=== PATIENT | male | born 1960 | race Hispanic/Latino ===

== ENCOUNTER 2022-07-12 17:55 | Observation (INO) | payer OTHER, SELFPAY ==
[2022-07-12 17:56] VITALS: BMI 29.9
--- NOTE | 2022-07-12 17:59 | EKG_ITS ---
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
[2022-07-12 18:00] VITALS: BP 186/97; PULSE 99; RESP 19; TEMP 36.9; O2SAT 99
--- NOTE | 2022-07-12 18:04 | XR_ITS ---
Exam: Chest PA, lateral 2 views Technique: Chest upright PA lateral 2 views Date and time of exam: July 12, 2022 1824 hrs. Comparison May 14, 2019 Indications: Central chest pain today Findings: Normal heart size. No mediastinal adenopathy. No acute fracture No pulmonary edema or pneumonia. Impression: No active disease.
--- NOTE | 2022-07-12 18:05 | PD.EDCHEST ---
ED Chest Pain RME/HPI General Chief Complaint: Chest Pain Stated Complaint: SENT BY PCP FOR ABNORMAL EKG Time Seen by Provider: 07/12/22 18:03 Arrival date/time: 07/12/22 17:55 62-year-old male with a medical history significant for diabetes mellitus, dyslipidemia, hypothyroidism, hypertension, BPH, GERD presents to the emergency department with complaint of chest pain. The patient states he developed a sharp pain to the left side of his chest while seated this morning. He went to his primary physician who performed an EKG and the patient was instructed to come to the emergency department for further evaluation. Pain is described as sharp in nature with the current intensity of 4 out of 10 not related to activity. There has been no fever, palpitations, dizziness, syncope, cough, shortness of breath or extremity swelling. Related Data Home Medications Medication Instructions Recorded Confirmed amlodipine 10 mg tablet 10 mg PO QDAY 04/24/18 07/13/22 atorvastatin 10 mg tablet (Lipitor) 10 mg PO QDAY 04/24/18 07/13/22 finasteride 5 mg tablet 5 mg PO QDAY 04/24/18 07/13/22 metformin 1,000 mg tablet 1,000 mg PO BID 04/24/18 07/13/22 omeprazole 40 mg capsule,delayed 40 mg PO QDAY 04/24/18 07/13/22 release clonidine HCl 0.3 mg tablet 0.3 mg PO TID 07/13/22 07/13/22 olmesartan 40 mg tablet 40 mg PO QDAY 07/13/22 07/13/22 pioglitazone 15 mg tablet 15 mg PO QDAY 07/13/22 07/13/22 sertraline 50 mg tablet 75 mg PO QDAY 07/13/22 07/13/22 levothyroxine 25 mcg tablet 25 mcg PO QDAY 07/14/22 07/14/22 tamsulosin 0.4 mg capsule 0.4 mg PO QDAY 07/14/22 07/14/22 valacyclovir 500 mg tablet 500 mg PO BID PRN flare ups 07/14/22 07/14/22 Allergies Allergy/AdvReac Type Severity Reaction Status Date / Time No Known Allergies Allergy Verified 09/22/20 09:34 Review of Systems Review of Systems Narrative Review of Systems: CONSTITUTIONAL: Denies fever or malaise HEENT: No eye redness or complaint of ear pain SKIN: ?No rash or itching. CARDIOVASCULAR: No chest pain or pedal edema RESPIRATORY: ?No shortness of breath, cough or sputum. GASTROINTESTINAL: No vomiting or diarrhea GENITOURINARY: ?No dysuria or foul-smelling urine NEUROLOGICAL: No neck stiffness or seizures MUSCULOSKELETAL: ?No muscle, back pain, joint pain or stiffness. HEMATOLOGIC: No bleeding or bruising.? LYMPHATICS: No enlarged nodes or streaking ENDOCRINOLOGIC: No sweating or polyuria ALLERGIES: ?No history of asthma, hives, eczema or rhinitis Past Medical History Past Medical History NEUROLOGIC: Negative Neurological Disorders or Seizures CARDIAC: Positive Hypercholesterolemia and Hypertension; Negative Congestive Heart Failure RESPIRATORY: Negative Chronic Obstructive Pulmonary Disease (COPD) GASTROINTESTINAL: Positive Gastrointestinal Disorders and Gastroesophageal Reflux Disease (NORM FUNDIPLICATION) GENITOURINARY: Positive Genitourinary Disorders and Benign Prostatic Hyperplasia; Negative Renal Disease MUSCULOSKELETAL: Positive Musculoskeletal Disorders and Arthritis ENDOCRINE: Positive Endocrine Disorders, Diabetes Mellitus Type 2 and Hypothyroidism; Negative Diabetes Mellitus Type 1 PSYCHO/SOCIAL: Positive Depression and Anxiety OTHER HISTORY: Negative Blood Transfusions, Blood Transfusion Reaction or Anesthesia Reactions Surgical History SURGICAL: Positive Transurethral Resection Social History SMOKING STATUS: Never smoker SUBSTANCE USE: does not use Travel History EBOLA RISK: No ED Exam Narrative Physical exam: GENERAL APPEARANCE: Hypertensive. The patient is nontoxic in appearance HEENT: normocephalic.PERRL, EOMI.Oral cavity and pharynx normal. No inflammation, swelling, exudate, or lesions.? NECK: Neck supple, non-tender without lymphadenopathy, masses or thyromegaly. CARDIAC: Normal S1 and S2. No murmurs LUNGS: Clear to auscultation and percussion without rales, rhonchi, wheezing or diminished breath sounds. ABDOMEN: Positive bowel sounds. Soft, nondistended, nontender. No guarding or rebound. No masses. MUSKULOSKELETAL: Adequately aligned spine. ROM intact spine and extremities. No joint erythema or tenderness. NEUROLOGICAL: Normal Gait, good muscle tone and movement of all extremities SKIN: Skin normal color, texture and turgor with no lesions or eruptions Course Quality Measures none Orders Category Date Time Status Decision to Admit Care 07/13/22 07:08 Completed EKG (ED ONLY) *Do not use* NOW Care 07/12/22 17:59 Completed EKG (ED ONLY) *Do not use* NOW Care 07/13/22 04:55 Completed EKG (ED Only) Stat Exams 07/12/22 17:59 Draft EKG (ED Only) Stat Exams 07/13/22 04:55 Ordered XR chest 2V Stat Exams 07/12/22 18:04 Completed BNP [B-Type Natriuretic Peptide] Stat Lab 07/12/22 18:34 Completed CBC Stat Lab 07/12/22 18:34 Completed CMP [Comprehensive Metabolic Panel] Stat Lab 07/12/22 18:34 Completed CMP [Comprehensive Metabolic Panel] Stat Lab 07/13/22 05:43 Completed COVID-19 (In-House Test) RNA Stat Lab 07/13/22 07:28 Completed Lipase Stat Lab 07/12/22 18:34 Completed Magnesium Stat Lab 07/12/22 23:58 Completed PT [Prothrombin Time with INR] Stat Lab 07/12/22 18:34 Completed PTT [Partial Thromboplastin Time] Stat Lab 07/12/22 18:34 Completed Phosphorous Stat Lab 07/13/22 05:43 Completed Troponin I Stat Lab 07/12/22 22:30 Completed Troponin I Stat Lab 07/12/22 23:58 Completed UA [Urinalysis] Stat Lab 07/12/22 18:37 Completed POTASSIUM CHL 10 mEq IVPB [Kcl Ivpb] Med 07/13/22 06:22 Discontinued 10 meq in 100 ml IV Q1H POTASSIUM CHL 10 mEq IVPB [Kcl Ivpb] Med 07/13/22 00:59 Discontinued 10 meq in 100 ml IV X1 Potassium Chloride [K-Dur] Med 07/13/22 06:21 Discontinued 40 meq PO X1 ONE Vital Signs Vital signs: Vital Signs Temperature 98.5 F 07/12/22 18:00 Pulse Rate 99 07/12/22 18:00 Respiratory Rate 19 07/12/22 18:00 Blood Pressure 186/97 H 07/12/22 18:00 Pulse Oximetry (%) 99 07/12/22 18:00 Oxygen Delivery Method Room Air 07/12/22 18:00 Chest Pain MDM Narrative MDM Narrative: The patient was sent by his primary physician for concern of abnormal EKG. Upon arrival here EKG showed a normal sinus rhythm with a right bundle branch block and no acute ischemic changes. Troponin was normal. Patient was noted to have a potassium of 2.3. Potassium chloride was administered intravenously. My shift has ended and my colleague will assume care of the patient pending repeat laboratory work, reevaluation and ultimate disposition. Lab Data Result diagrams: 07/14/22 05:34 07/14/22 05:34 Labs: Lab Results 07/12/22 07/12/22 07/12/22 Range/Units 18:34 18:34 18:34 WBC 8.2 (3.8-10.6) Thou/mm3 RBC 4.06 L (4.50-5.90) Miln/mm3 Hgb 12.0 L (13.5-16.0) g/dL Hct 32.9 L (41.0-53.0) % MCV 81 (80-100) fL MCH 29.6 (25.0-35.0) pg MCHC 36.5 (31.0-37.0) g/dl RDW Std Deviation 38.5 (35.1-43.9) fL Plt Count 210 (140-440) Thou/mm3 Neut % (Auto) 59 (37-80) % Lymph % (Auto) 32 (10-50) % [place] % (Auto) 7 (0-12) % Eos % (Auto) 1 (0-10) % Baso % (Auto) 1 (0-2.5) % Neut # (Auto) 4.9 (1.8-7.7) Thou/mm3 Lymph # (Auto) 2.6 (1.0-4.8) Thou/mm3 [place] # (Auto) 0.6 (0.0-0.8) Thou/mm3 Eos # (Auto) 0.1 (0.0-0.5) Thou/mm3 Baso # (Auto) 0.0 (0.0-0.2) Thou/mm3 Immature Gran # (Auto) 0.01 H (0.00-0.00) Thou/mm3 Absolute Nucleated RBC 0.00 (0.00-0.00) Thou/mm3 Immature Gran % 0 (0-0) % Nucleated RBC % 0 (0) /100 WBC PT 11.1 (9.0-12.2) Seconds INR 1.0 (0.9-1.3) APTT 26.5 (22.0-36.0) Seconds Sodium 126 L (136-145) mMol/L Potassium 2.9 L (3.4-5.1) mMol/L Chloride 89 L (98-107) mMol/L Carbon Dioxide 29.1 (20.0-31.0) mMol/L Anion Gap 8 (7-16) BUN 18 (9-23) mg/dL Creatinine 1.3 (0.6-1.3) mg/dL Estim Creat Clear Calc 56.5 L (>60) mL/min eGFR > 60 (60 - ) See Note BUN/Creatinine Ratio 14 (12-20) Ratio Glucose 173 H (74-106) mg/dL Calculated Osmolality 259 L (275-295) Calcium 10.0 (8.3-10.6) mg/dL Corrected Calcium 10.0 (8.5-10.1) mg/dL Phosphorus (2.4-5.1) mg/dL Magnesium (1.6-2.6) mg/dL Total Bilirubin 0.5 (0.3-1.2) mg/dL AST 31 (0-34) U/L ALT 18 (10-49) U/L Alkaline Phosphatase 79 (46-116) U/L Troponin I (0.0-0.045) ng/mL B-Natriuretic Peptide (0-100) pg/mL Total Protein 7.8 (5.7-8.2) gm/dL Albumin 4.8 (3.4-4.8) gm/dL Globulin 3.0 (2.3-3.5) gm/dL Albumin/Globulin Ratio 1.6 (1.2-2.2) Lipase 40 (12-53) U/L Ur Collection Type Urine Color (Lt Yel-Yel) Urine Clarity (Clear/Hazy) Urine pH (5.0-7.0) Ur Specific [place] (1.001-1.035) Urine Protein (Neg - Trace) Urine Glucose (UA) (Negative) Urine Ketones (Negative) Urine Blood (Negative) Urine Nitrite (Negative) Urine Bilirubin (Negative) Urine Urobilinogen (0.0-2.0) mg/dL Ur Leukocyte Esterase (Negative) Urine RBC (0-3) /hpf Urine WBC (0-5) /hpf Ur Squamous Epith Cells (0-5) /hpf Urine Bacteria (None) SARS-CoV-2, RNA, NAAT (Negative) 07/12/22 07/12/22 07/12/22 Range/Units 18:34 18:37 22:30 WBC (3.8-10.6) Thou/mm3 RBC (4.50-5.90) Miln/mm3 Hgb (13.5-16.0) g/dL Hct (41.0-53.0) % MCV (80-100) fL MCH (25.0-35.0) pg MCHC (31.0-37.0) g/dl RDW Std Deviation (35.1-43.9) fL Plt Count (140-440) Thou/mm3 Neut % (Auto) (37-80) % Lymph % (Auto) (10-50) % [place] % (Auto) (0-12) % Eos % (Auto) (0-10) % Baso % (Auto) (0-2.5) % Neut # (Auto) (1.8-7.7) Thou/mm3 Lymph # (Auto) (1.0-4.8) Thou/mm3 [place] # (Auto) (0.0-0.8) Thou/mm3 Eos # (Auto) (0.0-0.5) Thou/mm3 Baso # (Auto) (0.0-0.2) Thou/mm3 Immature Gran # (Auto) (0.00-0.00) Thou/mm3 Absolute Nucleated RBC (0.00-0.00) Thou/mm3 Immature Gran % (0-0) % Nucleated RBC % (0) /100 WBC PT (9.0-12.2) Seconds INR (0.9-1.3) APTT (22.0-36.0) Seconds Sodium (136-145) mMol/L Potassium (3.4-5.1) mMol/L Chloride (98-107) mMol/L Carbon Dioxide (20.0-31.0) mMol/L Anion Gap (7-16) BUN (9-23) mg/dL Creatinine (0.6-1.3) mg/dL Estim Creat Clear Calc (>60) mL/min eGFR (60 - ) See Note BUN/Creatinine Ratio (12-20) Ratio Glucose (74-106) mg/dL Calculated Osmolality (275-295) Calcium (8.3-10.6) mg/dL Corrected Calcium (8.5-10.1) mg/dL Phosphorus (2.4-5.1) mg/dL Magnesium (1.6-2.6) mg/dL Total Bilirubin (0.3-1.2) mg/dL AST (0-34) U/L ALT (10-49) U/L Alkaline Phosphatase (46-116) U/L Troponin I < 0.020 (0.0-0.045) ng/mL B-Natriuretic Peptide < 20 (0-100) pg/mL Total Protein (5.7-8.2) gm/dL Albumin (3.4-4.8) gm/dL Globulin (2.3-3.5) gm/dL Albumin/Globulin Ratio (1.2-2.2) Lipase (12-53) U/L Ur Collection Type Voided Urine Color Yellow (Lt Yel-Yel) Urine Clarity Clear (Clear/Hazy) Urine pH 6.0 (5.0-7.0) Ur Specific [place] 1.006 (1.001-1.035) Urine Protein 1+ A (Neg - Trace) Urine Glucose (UA) Negative (Negative) Urine Ketones Negative (Negative) Urine Blood 2+ A (Negative) Urine Nitrite Negative (Negative) Urine Bilirubin Negative (Negative) Urine Urobilinogen < 2.0 (0.0-2.0) mg/dL Ur Leukocyte Esterase Trace (Negative) Urine RBC 2 (0-3) /hpf Urine WBC 3 (0-5) /hpf Ur Squamous Epith Cells 0 (0-5) /hpf Urine Bacteria Rare (None) SARS-CoV-2, RNA, NAAT (Negative) 07/12/22 07/13/22 07/13/22 Range/Units 23:58 05:43 07:28 WBC (3.8-10.6) Thou/mm3 RBC (4.50-5.90) Miln/mm3 Hgb (13.5-16.0) g/dL Hct (41.0-53.0) % MCV (80-100) fL MCH (25.0-35.0) pg MCHC (31.0-37.0) g/dl RDW Std Deviation (35.1-43.9) fL Plt Count (140-440) Thou/mm3 Neut % (Auto) (37-80) % Lymph % (Auto) (10-50) % [place] % (Auto) (0-12) % Eos % (Auto) (0-10) % Baso % (Auto) (0-2.5) % Neut # (Auto) (1.8-7.7) Thou/mm3 Lymph # (Auto) (1.0-4.8) Thou/mm3 [place] # (Auto) (0.0-0.8) Thou/mm3 Eos # (Auto) (0.0-0.5) Thou/mm3 Baso # (Auto) (0.0-0.2) Thou/mm3 Immature Gran # (Auto) (0.00-0.00) Thou/mm3 Absolute Nucleated RBC (0.00-0.00) Thou/mm3 Immature Gran % (0-0) % Nucleated RBC % (0) /100 WBC PT (9.0-12.2) Seconds INR (0.9-1.3) APTT (22.0-36.0) Seconds Sodium 130 L (136-145) mMol/L Potassium 2.7 L* (3.4-5.1) mMol/L Chloride 92 L (98-107) mMol/L Carbon Dioxide 30.6 (20.0-31.0) mMol/L Anion Gap 7 (7-16) BUN 13 (9-23) mg/dL Creatinine 1.1 (0.6-1.3) mg/dL Estim Creat Clear Calc 66.7 (>60) mL/min eGFR > 60 (60 - ) See Note BUN/Creatinine Ratio 12 (12-20) Ratio Glucose 131 H (74-106) mg/dL Calculated Osmolality 262 L (275-295) Calcium 9.7 (8.3-10.6) mg/dL Corrected Calcium 9.7 (8.5-10.1) mg/dL Phosphorus 3.4 (2.4-5.1) mg/dL Magnesium 1.6 (1.6-2.6) mg/dL Total Bilirubin 0.6 (0.3-1.2) mg/dL AST 28 (0-34) U/L ALT 7 L (10-49) U/L Alkaline Phosphatase 62 D (46-116) U/L Troponin I < 0.020 (0.0-0.045) ng/mL B-Natriuretic Peptide (0-100) pg/mL Total Protein 7.7 (5.7-8.2) gm/dL Albumin 4.6 (3.4-4.8) gm/dL Globulin 3.1 (2.3-3.5) gm/dL Albumin/Globulin Ratio 1.5 (1.2-2.2) Lipase (12-53) U/L Ur Collection Type Urine Color (Lt Yel-Yel) Urine Clarity (Clear/Hazy) Urine pH (5.0-7.0) Ur Specific [place] (1.001-1.035) Urine Protein (Neg - Trace) Urine Glucose (UA) (Negative) Urine Ketones (Negative) Urine Blood (Negative) Urine Nitrite (Negative) Urine Bilirubin (Negative) Urine Urobilinogen (0.0-2.0) mg/dL Ur Leukocyte Esterase (Negative) Urine RBC (0-3) /hpf Urine WBC (0-5) /hpf Ur Squamous Epith Cells (0-5) /hpf Urine Bacteria (None) SARS-CoV-2, RNA, NAAT Presumptive Negative (Negative) Radiology Data Radiology results narrative: [facility] [address] [place] [address] [place] Report Signed Patient: CONNOR HARDIN. Record#: [id number] Birthdate: 1960 Age/Sex: 62 / M Location: [facility] Attending Dr: Ordering Physician: Redd Gomes PA-C Date of Service: 07/12/22 Procedure(s): XR chest 2V Accession Number(s): [id number] cc: Herminia Patel MD; Carlos A Jaimes MD; Redd Gomes PA-C~ Exam: Chest PA,? lateral 2 views ? Technique: Chest upright PA lateral 2 views ? Date and time of exam: July 12, 2022 1824 hrs. Comparison May 14, 2019 ? Indications: Central chest pain today ? Findings: ? Normal heart size. No mediastinal adenopathy. No acute fracture No pulmonary edema or pneumonia. ? Impression: ? No active disease. ? Dictated By: Carlos A Jaimes MD Signed By: <Electronically signed by Carlos A Jaimes MD in OV> 07/12/222118 DD/ 17 TD/TT: 07/12/222117 Computer Assembler: TRINI ECG Data Tracing #1: ECG Narrative: EKG shows normal sinus rhythm. There is a heart rate of 88. There is a right bundle branch block. No acute ischemic change. Normal intervals. No significant change from previous. Discharge Plan Plan Patient Disposition: Other Care w/in Hosp ([facility]) Patient condition on transfer: Stable Problem List Clinical Impression: Hypokalemia, Hypertensive urgency Patient/Caregiver Discharge Instructions Discharge Activity: activity as tolerated
[2022-07-12 18:58] LABS: Basophils % (Auto) 1 % (0-2.5); Eosinophils # (Auto) 0.1 Thou/mm3 (0.0-0.5); Eosinophils % (Auto) 1 % (0-10); Hematocrit 32.9 % (41.0-53.0); Immature Granulocytes % (Auto) 0 % (0-0); Immature Granulocytes Auto 0.01 Thou/mm3 (0.00-0.00); Lymphocytes # (Auto) 2.6 Thou/mm3 (1.0-4.8); Lymphocytes % (Auto) 32 % (10-50); Mean Corpuscular HGB Conc 36.5 g/dl (31.0-37.0); Mean Corpuscular Hemoglobin 29.6 pg (25.0-35.0); Mean Corpuscular Volume 81 fL (80-100); Monocytes # (Auto) 0.6 Thou/mm3 (0.0-0.8); Monocytes % (Auto) 7 % (0-12); Neutrophils # (Auto) 4.9 Thou/mm3 (1.8-7.7); Neutrophils % (Auto) 59 % (37-80); Nucleated Red Blood Cell % 0 /100 WBC (0); Platelet Count 210 Thou/mm3 (140-440); RDW Standard Deviation 38.5 fL (35.1-43.9); Red Blood Count 4.06 Miln/mm3 (4.50-5.90); White Blood Count 8.2 Thou/mm3 (3.8-10.6)
[2022-07-12 19:00] LABS: Collection Type, Urine Voided; Squamous Epithelial Cell,Urine 0 /hpf (0-5)
[2022-07-12 19:15] LABS: B-Type Natriuretic Peptide < 20 pg/mL (0-100)
[2022-07-12 19:15] LABS: Bacteria,Urine Rare; Bilirubin,Urine Negative (Negative); Blood,Urine 2+ (Negative); Clarity,Urine Clear (Clear/Hazy); Color,Urine Yellow (Lt Yel-Yel); Glucose, Urine Negative (Negative); Ketones,Urine Negative (Negative); Leukocyte Esterase,Urine Trace (Negative); Nitrite,Urine Negative (Negative); Protein,Urine 1+ (Neg - Trace); RBC,Urine 2 /hpf (0-3); Specific Gravity,Urine 1.006 (1.001-1.035); Urobilinogen,Urine < 2.0 mg/dL (0.0-2.0); WBC,Urine 3 /hpf (0-5)
[2022-07-12 19:16] LABS: Alanine Aminotransferase 18 U/L (10-49); Albumin, Serum 4.8 gm/dL (3.4-4.8); Albumin/Globulin Ratio 1.6 (1.2-2.2); Alkaline Phosphatase 79 U/L (46-116); Anion Gap 8 (7-16); Aspartate Amino Transferase 31 U/L (0-34); BUN/Creatinine Ratio 14 Ratio (12-20); Bilirubin,Total 0.5 mg/dL (0.3-1.2); Blood Urea Nitrogen 18 mg/dL (9-23); Carbon Dioxide 29.1 mMol/L (20.0-31.0); Chloride 89 mMol/L (98-107); Creatinine (Component) 1.3 mg/dL (0.6-1.3); Estimated Creatinine Clearance 56.5 mL/min (>60); Glucose 173 mg/dL (74-106); Lipase 40 U/L (12-53); Osmolality,Calculated 259 (275-295); Potassium 2.9 mMol/L (3.4-5.1); Sodium 126 mMol/L (136-145); Total Protein 7.8 gm/dL (5.7-8.2); eGFR > 60 See Note
[2022-07-12 19:19] LABS: Partial Thromboplastin Time 26.5 Seconds (22.0-36.0); Prothrombin Time 11.1 Seconds (9.0-12.2)
[2022-07-12 23:10] LABS: Troponin I < 0.020 ng/mL (0.0-0.045)
[2022-07-13] VITALS (12 sets, daily range): BP systolic 144–163; BP diastolic 80–104; PULSE 60–99; RESP 16–20; TEMP 36.3–36.6; O2SAT 96–100
[2022-07-13 00:27] LABS: Troponin I < 0.020 ng/mL (0.0-0.045)
[2022-07-13 01:25] LABS: Magnesium 1.6 mg/dL (1.6-2.6)
[2022-07-13] MEDS: POTASSIUM CHL 10 mEq IVPB 10 MEQ/100 ML BAG 100 MEQ IV ×5 (01:58→12:33)
[2022-07-13 06:16] LABS: Alanine Aminotransferase 7 U/L (10-49); Albumin, Serum 4.6 gm/dL (3.4-4.8); Albumin/Globulin Ratio 1.5 (1.2-2.2); Alkaline Phosphatase 62 U/L (46-116); Anion Gap 7 (7-16); Aspartate Amino Transferase 28 U/L (0-34); BUN/Creatinine Ratio 12 Ratio (12-20); Bilirubin,Total 0.6 mg/dL (0.3-1.2); Blood Urea Nitrogen 13 mg/dL (9-23); Calcium 9.7 mg/dL (8.3-10.6); Calcium (Corrected) 9.7 mg/dL (8.5-10.1); Carbon Dioxide 30.6 mMol/L (20.0-31.0); Chloride 92 mMol/L (98-107); Creatinine (Component) 1.1 mg/dL (0.6-1.3); Estimated Creatinine Clearance 66.7 mL/min (>60); Globulin 3.1 gm/dL (2.3-3.5); Glucose 131 mg/dL (74-106); Osmolality,Calculated 262 (275-295); Sodium 130 mMol/L (136-145); Total Protein 7.7 gm/dL (5.7-8.2); eGFR > 60 See Note
[2022-07-13 06:17] LABS: Potassium 2.7 mMol/L (3.4-5.1)
[2022-07-13] MEDS: POTASSIUM CHLORIDE 20 mEq TABCR 40 MEQ PO (06:29)
[2022-07-13 08:18] LABS: COVID-19 (In-House Test) RNA Presumptive Negative (Negative)
--- NOTE | 2022-07-13 08:52 | PD.RESHP ---
Documentation for date of: 07/13/22 [facility] History of Present Illness Chief complaint: chest pain History of present illness: Patient is a 62-year-old male who presents with chest pain. The pain began yesterday morning after waking up, while he was resting, and lasted throughout the day. He presented to a clinic for evaluation, and they recommended he come to the ED for further workup. He does not currently have any chest pain, but describes the pain he had yesterday as sharp/electric in nature, not pressure-like. Pain localizes to the left anterior chest and does not radiate. Pain did not change with exertion or with rest, and it resolved spontaneously. He denies heartburn, shortness of breath, wheezing, nausea. He denies history of cardiac disease, reports that several years ago he underwent cardiac workup/testing a few times in [place] that did not yield anything significant. He denies significant life change or changes in medication regimen other than starting an antibiotic last week for prostatitis. ED Course: EKG showed sinus rhythm with RBBB (unchanged from EKG in 2019), initial labs significant for Na 126, K 2.9, negative troponin I x2, negative BNP. Repeat labs this morning significant for potassium 2.7, for which he received potassium chloride 30mEq IV and 40mEq PO. 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 He lives at home in [place] with his . He denies smoking, drinking, recreational substances. Review of Systems Review of Systems Narrative Review of Systems: Constitutional: Negative for fever, chills, weight loss, loss of appetite HEENT: Negative for headache, visual disturbance Cardiovascular: Positive for chest pain, Negative for syncope, peripheral edema Respiratory: Negative for shortness of breath, wheezing, cough Gastrointestinal: Negative for abdominal pain, nausea, vomiting, diarrhea, constipation Genitourinary: Negative for dysuria Musculoskeletal: Negative for weakness Integument: Negative for rash, bruises, new lesions, wounds, discoloration Exam Vital Signs Temp Pulse Resp BP Pulse Ox O2 Del Method 97.8 F 65 16 159/104 H 99 Room Air 07/13/22 07:28 07/13/22 07:28 07/13/22 07:28 07/13/22 07:28 07/13/22 07:28 07/13/22 07:28 Narrative Exam General: well developed, NAD, resting comfortably in bed HEENT: NCAT, PERRL, EOMI, sclera anicteric, MMM Cardiac: RR, normal S1-S2, no M/R/G, no JVD, no chest wall tenderness Lungs: CTAB, no crackles or wheezing, normal work of breathing Abdomen: Soft, nontender, mild distension, no peritoneal signs Extremities: No peripheral edema, no cyanosis MSK/Skin: Warm, dry, intact, no mottling, rash or ecchymoses on exposed skin Neuro: Alert and oriented x3, no focal neurologic deficits Results: Labs CBC & Chem 7: 07/14/22 05:34 07/14/22 05:34 Labs: Short CBC 07/12/22 Range/Units 18:34 WBC 8.2 (3.8-10.6) Thou/mm3 Hgb 12.0 L (13.5-16.0) g/dL Hct 32.9 L (41.0-53.0) % Plt Count 210 (140-440) Thou/mm3 BMP 07/12/22 07/13/22 18:34 05:43 Sodium 126 L 130 L Potassium 2.9 L 2.7 L* Chloride 89 L 92 L Carbon Dioxide 29.1 30.6 BUN 18 13 Creatinine 1.3 1.1 Glucose 173 H 131 H Calcium 10.0 9.7 Cardiac Enzymes 07/12/22 07/12/22 Range/Units 22:30 23:58 Troponin I < 0.020 < 0.020 (0.0-0.045) ng/mL Liver Function 07/12/22 07/13/22 Range/Units 18:34 05:43 Total Bilirubin 0.5 0.6 (0.3-1.2) mg/dL AST 31 28 (0-34) U/L ALT 18 7 L (10-49) U/L Alkaline Phosphatase 79 62 D (46-116) U/L Albumin 4.8 4.6 (3.4-4.8) gm/dL Urine 07/12/22 Range/Units 18:37 Urine Color Yellow (Lt Yel-Yel) Urine Clarity Clear (Clear/Hazy) Urine pH 6.0 (5.0-7.0) Ur Specific [place] 1.006 (1.001-1.035) Urine Protein 1+ A (Neg - Trace) Urine Glucose (UA) Negative (Negative) Quality Measures Quality Measures VTE prophylaxis Medications Home Medications and Allergies Home Medications Medication Instructions Recorded Confirmed Type amlodipine 10 mg tablet 10 mg PO QDAY 04/24/18 07/13/22 History atorvastatin 10 mg tablet (Lipitor) 10 mg PO QDAY 04/24/18 07/13/22 History finasteride 5 mg tablet 5 mg PO QDAY 04/24/18 07/13/22 History hydrochlorothiazide 25 mg tablet 25 mg PO QAM 04/24/18 07/13/22 History metformin 1,000 mg tablet 1,000 mg PO BID 04/24/18 07/13/22 History omeprazole 40 mg capsule,delayed 40 mg PO QDAY 04/24/18 07/13/22 History release clonidine HCl 0.3 mg tablet 0.3 mg PO TID 07/13/22 07/13/22 History olmesartan 40 mg tablet 40 mg PO QDAY 07/13/22 07/13/22 History pioglitazone 15 mg tablet 15 mg PO QDAY 07/13/22 07/13/22 History sertraline 50 mg tablet 75 mg PO QDAY 07/13/22 07/13/22 History levothyroxine 25 mcg tablet 25 mcg PO QDAY 07/14/22 07/14/22 History tamsulosin 0.4 mg capsule 0.4 mg PO QDAY 07/14/22 07/14/22 History valacyclovir 500 mg tablet 500 mg PO BID PRN flare ups 07/14/22 07/14/22 History Allergies Allergy/AdvReac Type Severity Reaction Status Date / Time No Known Allergies Allergy Verified 09/22/20 09:34 Visit Medications Acetaminophen (Acetaminophen 325 Mg Tablet) 650 mg PO Q6H PRN PRN Reason: PAIN SCALE 1-3 (mild Stop: 08/12/22 08:45 Amlodipine Besylate (Amlodipine Besylate 5 Mg Tablet) 10 mg PO QDAY [facility] Stop: 08/12/22 08:59 Aspirin (Aspirin Ec 81 Mg Tabec) 81 mg PO QDAY [facility] Stop: 08/12/22 08:59 Atorvastatin Calcium (Atorvastatin Calcium 10 Mg Tablet) 10 mg PO QDAY [facility] Stop: 08/12/22 08:59 Finasteride (Finasteride 5 Mg Tablet) 5 mg PO QDAY [facility] Stop: 08/12/22 08:59 Potassium Chloride (Kcl Ivpb) 10 meq in 100 mls @ 100 mls/hr IV Q1H [facility] Stop: 07/13/22 10:21 Last Admin: 07/13/22 06:29 Dose: 100 mls/hr Magnesium Sulfate (Magnesium Sulfate Ivpb) 2 gm in 50 mls @ 25 mls/hr IV X1 ONE Stop: 07/13/22 10:43 Losartan Potassium (Losartan Potassium 25 Mg Tablet) 100 mg PO QDAY [facility] Stop: 08/12/22 08:59 Metformin HCl (Metformin 500 Mg Tablet) 1,000 mg PO BID [facility] Stop: 08/12/22 08:59 Nitroglycerin (Nitroglycerin 0.4 Mg Subl Btl #25) 0.4 mg SL [id number] PRN PRN Reason: CHEST PAIN Stop: 08/12/22 08:45 Non-Formulary Medication (Levothyroxine) 25 mcg PO QDAY [facility] Stop: 08/12/22 08:59 Non-Formulary Medication (Omeprazole) 40 mg PO QDAY [facility] Stop: 08/12/22 08:59 Non-Formulary Medication (Sertraline) 50 mg PO QDAY [facility] Stop: 08/12/22 08:59 Non-Formulary Medication (Valacyclovir) 500 mg PO BID [facility] Stop: 08/12/22 08:59 Ondansetron HCl (Ondansetron Inj 2 Mg/Ml Vial 2 Ml) 4 mg IV Q6H PRN PRN Reason: NAUSEA OR VOMITING Stop: 08/12/22 08:45 Sucralfate (Sucralfate 1 Gm Tablet) 1 gm PO Q12H [facility] Stop: 08/12/22 08:44 Tamsulosin HCl (Tamsulosin Hcl 0.4 Mg Capsule) 0.4 mg PO QHS [facility] Stop: 08/12/22 08:44 Discontinued Medications Potassium Chloride (Kcl Ivpb) 10 meq in 100 mls @ 100 mls/hr IV X1 ONE Stop: 07/13/22 01:58 Last Infusion: 07/13/22 03:57 Dose: Infused Potassium Chloride (Potassium Chloride 20 Meq Tabcr) 40 meq PO X1 ONE Stop: 07/13/22 06:22 Last Admin: 07/13/22 06:29 Dose: 40 meq Assessment & Plan Plan Patient is a 62-year-old male with PMHx DM, HLD, hypothyroidism, HTN, BPH, GERD who presents with atypical chest pain and hypertension, admitted for hypertensive urgency. Hypertensive urgency BP 186/97 on presentation, all subsequent SBP 140-160s. All other vitals stable, no signs of end-organ damage. Did have chest pain at that time, however troponin and BNP negative and EKG without acute changes. Restart home antihypertensives - amlodipine 10mg QD, clonidine 0.3mg TID, HCTZ 25mg QD, olmesartan 40mg QD. Monitor routine vitals. Atypical chest pain Patient presented with chest pain. Troponin negative x2. EKG demonstrated RBBB, no acute changes from prior. Features are atypical and inconsistent with acute coronary syndrome. FABIO score 1. CAD risk factor screening: f/u A1c, lipid panel, TSH Patient does not have local or active cardiology provider. Cardiology consulted, appreciate Dr. Torres's recommendations Continue home aspirin 81mg QD Nitroglycerin PRN if symptoms return Hypotonic hyponatremia, resolving Hypokalemia, resolved Hyponatremia likely 2/2 dehydration vs diuretic use. Diet ordered, encourage PO hydration and alimentation. Check BMP in AM. Diabetes mellitus Hold home antiglycemics SSI, POC checks ACHS BG goal 140-180 F/u A1c Hyperlipidemia Continue home atorvastatin, f/u lipid panel GERD Continue home omeprazole BPH Continue home finasteride, tamsulosin Hypothyroidism Continue home levothyroxine DVT prophylaxis: SCDs GI prophylaxis: not indicated Diet: Carb consistent Turner: no Lines: PIV Supplemental O2: none Code Status: FULL CODE Reason for hospitalization: hypertensive urgency Disposition: home, likely discharge within 24 hrs Case discussed with attending physician Dr. Edwards. Niecy Segundo MD - PGY-1 Attending Provider Attestation/Addendum Patient was seen and examined. He was admitted for chest pain. He is not short of breath. Earlier he had uncontrolled blood pressure and hypokalemia. PE: Lungs: Clear to auscultation CVS: Regular cardiac rate and rhythm Abdomen: Nontender NABS Extremities: No tenderness MECHANIC ASSISTANT: Nonfocal Patient admitted to observation for chest pain hypokalemia and hypertension requested by ER physician
--- NOTE | 2022-07-13 09:28 | EDNOTE_ITS ---
Entered by Azul Boothe, acting as scribe for Eric Ballesteros MD Jul 12, 2022 17:55 Emergency Room Addendum Addendum Narrative: Care assumed from Redd RODRIGUEZ, the previous shift emergency physician. Past medical, surgical, social and family history reviewed. Vitals and home medications reviewed. Results and treatment plan discussed. I will assume the care of the patient at this time and will follow the patient, pending repeat CMP. CMP resulted and potassium improved from 2.3 to 2.7, will order potassium 40mg IV and 40mg PO, will admit to hospitalist services 07:01 Hospitalist was contacted and states he would call back in 15 minutes. 07:08 Dr. Edwards made aware of the patient?s HPI, PMHx, lab and radiology results. Treatment plan was discussed. Will admit for further evaluation and management. Accepts patient for admission MD Attestation Attestation Azul Toussaint, am in the presence of and am scribing for Dr. Ballesteros. The documentation recorded by the scribe, Azul Boothe, accurately reflects the service I personally performed and the decisions made by , Eric Ballesteros MD Jul 12, 2022 17:55
[2022-07-13 09:34] LABS: Phosphorous 3.4 mg/dL (2.4-5.1)
[2022-07-13] MEDS: ASPIRIN EC 81 MG TABEC PO (09:35)
[2022-07-13] MEDS: PANTOPRAZOLE 40 MG TABLET PO ×2 (09:36→20:27)
[2022-07-13] MEDS: amLODIPine BESYLATE 5 MG TABLET 10 MG PO (09:36)
[2022-07-13] MEDS: LEVOTHYROXINE SODIUM 25 MCG TABLET PO (09:36)
[2022-07-13] MEDS: SERTRALINE HCL 25 MG TABLET 50 MG PO (10:01)
[2022-07-13] MEDS: SUCRALFATE 1 GM TABLET PO ×2 (10:02→20:28)
[2022-07-13] MEDS: FINASTERIDE 5 MG TABLET PO (10:03)
[2022-07-13] MEDS: metFORMIN 500 MG TABLET 1000 MG PO ×2 (10:04→20:27)
[2022-07-13] MEDS: Magnesium Sulfate 2 GM Ivpb 2 GM/50 ML BAG IV (10:05)
[2022-07-13] MEDS: ATORVASTATIN CALCIUM 10 MG TABLET PO (10:34)
[2022-07-13] MEDS: OLMESARTAN 20 MG TABLET 40 MG PO (12:16)
[2022-07-13 16:12] LABS: Anion Gap 9 (7-16); BUN/Creatinine Ratio 10 Ratio (12-20); Blood Urea Nitrogen 11 mg/dL (9-23); Calcium 9.8 mg/dL (8.3-10.6); Carbon Dioxide 26.9 mMol/L (20.0-31.0); Chloride 98 mMol/L (98-107); Creatinine (Component) 1.1 mg/dL (0.6-1.3); Estimated Creatinine Clearance 66.7 mL/min (>60); Glucose 146 mg/dL (74-106); Osmolality,Calculated 270 (275-295); Potassium 4.2 mMol/L (3.4-5.1); Sodium 134 mMol/L (136-145); eGFR > 60 See Note
[2022-07-13] MEDS: ACETAMINOPHEN 325 MG TABLET 650 MG PO (16:28)
--- NOTE | 2022-07-13 19:45 | PC.NURSE ---
DR Mk Torres at bedside, examining patient. Explained possible procedure in am, patient expressed understanding. will obtain consent.
[2022-07-13] MEDS: TAMSULOSIN HCL 0.4 MG CAPSULE PO (20:28)
[2022-07-14] VITALS (12 sets, daily range): BP systolic 128–180; BP diastolic 76–97; PULSE 68–92; RESP 12–19; TEMP 36.1–36.9; O2SAT 98–99
--- NOTE | 2022-07-14 01:43 | ESCONSULT_ITS ---
RE: CONNOR HARDIN : 1960 DATE OF CONSULTATION: 07/13/2022 REASON FOR CONSULTATION: Chest pain, angina pectoris. HISTORY OF PRESENT ILLNESS: The patient is a 62-year-old patient who has a history of Urology problems and multiple medical issues, presented to the hospital with severe chest pain. He mostly speaks Kinyarwanda, I interpreted via media clerk. The patient has severe left- sided anterior chest pain, sometimes sharp, pressure-like. When he got up in the morning, he felt better, but still has some chest pain. The patient has had a workup many years ago, stress test was negative, had never had an angiogram. EKG did show sinus rhythm, right bundle-branch block. Initial lab data was slightly abnormal, hypokalemia and hyponatremia. The patient was on hydrochlorothiazide. Negative for troponin,. Subsequent troponin was also normal. The patient still had fairly significant chest pain intermittently. MEDICATIONS: 1. Amlodipine daily. 2. Atorvastatin. 3. On combination therapy. Does not remember. 4. He is also on Metformin and hydrochlorothiazide. PAST MEDICAL HISTORY: Hypothyroidism, hypertension, GERD. ALLERGIES: NONE. PAST SURGICAL HISTORY: No surgeries except for the surgery for enlarged prostate, robotic surgery. REVIEW OF SYSTEMS: Negative. PHYSICAL EXAMINATION: GENERAL: Well-nourished, acutely ill, chronically ill. VITAL SIGNS: Blood pressure 150/100, pulse rate is 65, respirations 16, temperature normal. HEENT: Head is atraumatic, normocephalic. Eyes normal. ENT: Normal. NECK: Supple. No JVD. Carotid pulse felt with no bruits. CHEST: Symmetrical. LUNGS: Clear. HEART: Regular. No gallops. ABDOMEN: Soft. EXTREMITIES: No edema. ASSESSMENT: 1. Unstable angina pectoris, possible NSTEMI, recurrent chest pain at rest, crescendo angina pectoris. 2. Hypertension. 3. Hypercholesterolemia. 4. Diabetes mellitus. RECOMMENDATIONS: Because of risk factors of CAD, obesity., the patient is recommended to have coronary angiogram and cardiac catheterization because of crescendo angina pectoris. Keep him n.p.o. after midnight and perform coronary angiogram and cardiac catheterization tomorrow. DT: 23:06:01 TT: 01:14:00 Ref: [id number] - TID: [id number] MTDD
[2022-07-14] MEDS: amLODIPine BESYLATE 5 MG TABLET 10 MG PO (05:15)
--- NOTE | 2022-07-14 05:57 | PC.NURSE ---
System downtime from [id number].
[2022-07-14 06:53] LABS: Basophils % (Auto) 1 % (0-2.5); Eosinophils # (Auto) 0.1 Thou/mm3 (0.0-0.5); Eosinophils % (Auto) 1 % (0-10); Hematocrit 38.2 % (41.0-53.0); Hemoglobin 13.3 g/dL (13.5-16.0); Immature Granulocytes % (Auto) 0 % (0-0); Immature Granulocytes Auto 0.01 Thou/mm3 (0.00-0.00); Lymphocytes # (Auto) 1.8 Thou/mm3 (1.0-4.8); Lymphocytes % (Auto) 26 % (10-50); Mean Corpuscular HGB Conc 34.8 g/dl (31.0-37.0); Mean Corpuscular Hemoglobin 29.2 pg (25.0-35.0); Mean Corpuscular Volume 84 fL (80-100); Monocytes # (Auto) 0.5 Thou/mm3 (0.0-0.8); Monocytes % (Auto) 8 % (0-12); Neutrophils # (Auto) 4.3 Thou/mm3 (1.8-7.7); Neutrophils % (Auto) 64 % (37-80); Nucleated Red Blood Cell % 0 /100 WBC (0); Platelet Count 219 Thou/mm3 (140-440); RDW Standard Deviation 41.3 fL (35.1-43.9); Red Blood Count 4.55 Miln/mm3 (4.50-5.90); White Blood Count 6.6 Thou/mm3 (3.8-10.6)
[2022-07-14 07:11] LABS: Partial Thromboplastin Time 26.2 Seconds (22.0-36.0)
[2022-07-14 07:12] LABS: Glucose Estimated Average 151 mg/dL (80-131); Hemoglobin A1C 6.9 % Hgb (4.8-6.0)
[2022-07-14 07:21] LABS: Anion Gap 8 (7-16); BUN/Creatinine Ratio 8 Ratio (12-20); Blood Urea Nitrogen 9 mg/dL (9-23); Cardiac Risk Estimate 3.6 RATIO (4.0-6.7); Chloride 100 mMol/L (98-107); Cholesterol 102 mg/dL (132-200); Creatinine (Component) 1.1 mg/dL (0.6-1.3); Estimated Creatinine Clearance 66.7 mL/min (>60); Glucose 136 mg/dL (74-106); HDL Cholesterol 28 mg/dL (40-60); LDL Cholesterol,Calculated 60 mg/dL (0-130); Magnesium 1.8 mg/dL (1.6-2.6); Osmolality,Calculated 272 (275-295); Phosphorous 2.1 mg/dL (2.4-5.1); Potassium 3.7 mMol/L (3.4-5.1); Sodium 136 mMol/L (136-145); Thyroid Stimulating Hormone 2.22 uIU/mL (0.55-4.78); Triglycerides 69 mg/dL (30-150); eGFR > 60 See Note
[2022-07-14] MEDS: ASPIRIN EC 81 MG TABEC PO (08:12)
[2022-07-14] MEDS: OLMESARTAN 20 MG TABLET 40 MG PO (08:12)
[2022-07-14] MEDS: SODIUM CHLORIDE 0.45 % 500 ML 100 ML IV (12:30)
--- NOTE | 2022-07-14 13:05 | CHAP ---
Patient was visited by a [facility] spiritual care volunteer on 07/14/2022 between 1002 and 1111 and received comfort and prayer.
--- NOTE | 2022-07-14 14:33 | PC.NURSE ---
AT APPROX. 1400- RECEIVED HAND OFF REPORT FROM DIANA CHANG
--- NOTE | 2022-07-14 15:54 | ESOP_ITS ---
RE: CONNOR HARDIN : 1960 DATE OF OPERATION: 07/14/2022 PROCEDURE PERFORMED: 1. Urgent diagnostic left heart cardiac catheterization, selective coronary angiogram, left ventricular angiogram, CPT 92056. 2. Ultrasound-guided access, right radial artery. 3. Conscious sedation for 30-minute duration. 4. TR band application to secure hemostasis. DIAGNOSES: Unstable angina, acute crescendo angina chest pain and possible non-ST segment elevation myocardial infarction. CHIEF COMPLAINT: Chest pain. HISTORY AND INDICATION: Mr. Connor Hardin is a 62-year-old male with history of hypertension, risk factors, CAD, has recurrent shortness of breath with chest pain, came to the hospital with unstable angina pectoris, abnormal EKGs suggestive of possible ischemia, bundle-branch block and ST depressions. Coronary angiogram was recommended to assess if he has significant CAD causing his crescendo angina chest pain at rest. DESCRIPTION OF PROCEDURE: The patient was brought to cardiac catheterization laboratory where he was given 2 mg Versed and 100 mcg of fentanyl for sedation. The right radial approach was taken. The right radial artery was cannulated by micropuncture technique using ultrasound guidance. A 5-[place] Glides[place]ath was introduced. Selective right and left coronary angiogram was then performed. Left coronary angiogram performed by TIG-4 diagnostic catheter. Left heart catheterization, LV angiogram performed by TIG-4 diagnostic catheter. Right coronary artery selectively could not be cannulated. RCA appears that it is coming off the left coronary cusp right next to left main. Nonselective angiogram close to the origin showed evidence of widely patent right coronary artery. This was performed using a David radial catheter. Also used AL1 catheter could not be selectively cannulated as well. The patient tolerated the procedure well. There were no complications. TR band was applied. Hemostasis was secured. Coronary angiogram showed following findings: The right coronary artery is large and dominant, appears normal coming from the left coronary cusp. Left coronary artery system: Left main coronary artery is normal. Left anterior descending artery appears normal. Circumflex artery is normal. Left ventricular pressure was recorded 140/12, aortic pressure 140/70. No gradient across the aortic valve. Left ventricular angiogram showed normal left ventricular wall motion, ejection fraction 70%. SUMMARY OF FINDINGS: Suggestive of: 1. Normal nonobstructive epicardial coronary arteries. 2. 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 3. Normal left ventricular function, ejection fraction 70%. 4. Normal hemodynamics. RECOMMENDATION: The patient was reassured that there is no significant obstructive coronary artery disease. Can be discharged home later today to see a primary care physician as an outpatient. DT: 12:56:26 TT: 15:53:00 Ref: [id number] - TID: [id number]
--- NOTE | 2022-07-14 16:13 | ESDS_ITS ---
Planned Discharge Date 07/14/22 DS: Providers Provider Date of admission: 07/13/22 08:41 Primary care physician: Herminia Patel MD Admitting Provider: Prince Edwards MD Attending Provider on Admission: Prince Edwards MD Consults: 07/13/22 08:45 Consult to Cardiology Stat Comment: Consulting Provider: Lesli Torres Attending Provider on DC: Prince Edwards MD Discharging Provider: Niecy Segundo MD Anticipated date of discharge: 07/14/22 DS: Diagnosis Problem List Completed Was Problem List Reviewed/Reconciled?: Yes Hospital Course Hospital Course Hospital course: Patient is a 62-year-old male with PMHx DM, HLD, hypothyroidism, HTN, BPH, GERD who presented to the ED 07/12 with atypical chest pain for ~10 hours. In the ED, his BP was 186/97, troponin negative x2, EKG demonstrated RBBB without change from prior. Given risk factors for CAD (DM, HLD, HTN), Cardiology was consulted and elected to pursue diagnostic left heart catheterization, which showed normal, nonobstructive coronary arteries and normal LV function with EF 70%. Blood pressure was managed with patient's home antihypertensive regimen, with th e exception of HCTZ which was discontinued due to electrolyte abnormalities of hyponatremia and hypokalemia. Patient is medically stable for discharge to home. Recommend follow up with PCP within 2 weeks of discharge to optimize home antihypertensive regimen. Case discussed with attending physician Dr. Edwards. Niecy Segundo MD - PGY-1 Status at Discharge Functional status at discharge: independent ambulation Overall status at discharge: patient is back to baseline Time Spent with Patient Time attestation: Total time spent providing and/or coordinating discharge services: Exam Vital Signs Temp Pulse Resp BP Pulse Ox O2 Del Method 97.5 F 83 12 170/91 H 99 Room Air 07/14/22 13:08 07/14/22 14:47 07/14/22 14:47 07/14/22 14:47 07/14/22 14:47 07/14/22 14:47 Narrative Exam General: well developed, NAD, resting comfortably in bed eating lunch with family members at bedside HEENT: NCAT, PERRL, EOMI, sclera anicteric, MMM Cardiac: RR, normal S1-S2, no M/R/G, no JVD, no chest wall tenderness Lungs: CTAB, no crackles or wheezing, normal work of breathing Abdomen: Soft, nontender, mild distension, no peritoneal signs Extremities: No peripheral edema, no cyanosis MSK/Skin: Warm, dry, intact, no mottling, rash or ecchymoses on exposed skin Neuro: Alert and oriented x3, no focal neurologic deficits Discharge Plan Plan Patient Disposition: HOME (Self Care) Patient condition on transfer: Stable Prescriptions/Referrals Prescriptions/Med Rec: Continued atorvastatin [Lipitor] 10 mg tablet 10 mg PO QDAY amlodipine 10 mg tablet 10 mg PO QDAY metformin 1,000 mg tablet 1,000 mg PO BID omeprazole 40 mg capsule,delayed release(DR/EC) 40 mg PO QDAY finasteride 5 mg tablet 5 mg PO QDAY pioglitazone 15 mg tablet 15 mg PO QDAY Patient Comments: TOME NIMO TABLETA TODOS LOS D clonidine HCl 0.3 mg tablet 0.3 mg PO TID Patient Comments: TOME NIMO TABLETA TONY VECES AL D A sertraline 50 mg tablet 75 mg PO QDAY Patient Comments: TAKE 1 AND 1/2 TABLETS POR V A ORAL TODOS LOS D olmesartan 40 mg tablet 40 mg PO QDAY Patient Comments: TOME NIMO TABLETA TODOS LOS D valacyclovir 500 mg Tablet 500 mg PO BID PRN (Reason: flare ups) Patient Comments: pt last took medication 3 months ago approximately levothyroxine 25 mcg Tablet 25 mcg PO QDAY tamsulosin 0.4 mg Capsule 0.4 mg PO QDAY Discontinued hydrochlorothiazide 25 mg tablet 25 mg PO QAM Referrals: Herminia Patel MD [Primary Care Provider] - Lesli Torres MD [Physician] - Patient/Caregiver Discharge Instructions Discharge Activity: activity as tolerated Print Language: Setswana Stand Alone Forms: Patient Portal Info Letter, Work/Release Restrictions Discharge Order Discharge Orders: Discharge (Routine); Ordered 07/14/22 Ordered By: Jose Daniel Li Quality Discharge Quality Measures VTE prophylaxis Attestestation Attestation Patient was seen and examined on July 14, 2022. I agree with the assessment and discharge plan as above. The patient will follow-up in the clinic. I supervised the medical residents.
[2022-07-14] MEDS: POTASSIUM CHLORIDE 20 mEq TABCR PO (16:34)
[2022-07-14] MEDS: NAPH,KPH MBDB 1 PACKET (1.5 GM) PO (16:34)
--- NOTE | 2023-06-01 09:01 | PC.SS ---
Late note 05/31/23: SS met with patient regarding d/c plan. Pt is alert/oriented. Pt was admitted for CHF Exacerbation, Sepsis UNK Source. Pt confirmed demographic and contact information is correct. Pt resides with son and friends. Pt ambulates independently without assistance or DME. Pt is ok with all ADLs. Pt's pharmacy of choice is [facility]. Pt states he uses O2 at home. SS has contacted son and is aware to bring small O2 tank for d/c. Pt's PCP is [facility]. Pt does not have an advance directive, SS offered, and pt declined. Pt's choice is to return home upon d/c. Emergency contact is: Kristina Almaguer, friend, phone# [phone] Ulises Richardson, son, phone# [phone]
--- NOTE | 2023-06-01 09:03 | PC.SS ---
Pt d/c home 05/31/23.
== END 2022-07-14 16:57 | disposition home or self-care (01) ==
LOC: SERX 07-13 06:34 → SERHOLD 07-13 08:57 → S3EX 07-14 09:58
PROVIDERS: General Practice; Student in an Organized Health Care Education/Training Program; Admitting Provider Internal Medicine; Emergency Provider Internal Medicine Critical Care Medicine; PCP Physician Assistant; Visit Provider Internal Medicine
DX: I16.0 Hypertensive urgency (principal); I25.110 Atherosclerotic heart disease of native coronary artery with unstable angina pectoris; I45.10 Unspecified right bundle-branch block; K21.9 Gastro-esophageal reflux disease without esophagitis; M19.90 Unspecified osteoarthritis, unspecified site; N40.0 Benign prostatic hyperplasia without lower urinary tract symptoms; Z79.82 Long term (current) use of aspirin; Z79.84 Long term (current) use of oral hypoglycemic drugs; Z88.6 Allergy status to analgesic agent; E03.9 Hypothyroidism, unspecified; E11.9 Type 2 diabetes mellitus without complications; E78.00 Pure hypercholesterolemia, unspecified; E87.1 Hypo-osmolality and hyponatremia; E87.6 Hypokalemia; E87.8 Other disorders of electrolyte and fluid balance, not elsewhere classified; F32.A Depression, unspecified; F41.9 Anxiety disorder, unspecified; I10 Essential (primary) hypertension
CPT/HCPCS: 93458; 93571; 36415; 71046; 80048; 80053; 80061; 80069; 81001; 83036; 83690; 83735; 83880; 84100; 84443; 84484; 85025; 85610; 85730; 87635; 93005; 96365; 96366; 99152; 99153; 99285; A4649; C1769; C1887; C9803; G0378; J0461; J1644; J2250; J2310; J2370; J3010; J3475; J3480; J3490; J7040; Q9967; A9270; U0002

== ENCOUNTER 2025-06-05 12:25 | Day surgery (SDC) | payer OTHER, SELFPAY ==
[2025-06-05] VITALS (13 sets, daily range): BP systolic 118–181; BP diastolic 67–88; PULSE 52–91; RESP 10–17; TEMP 36.7; O2SAT 97–100; BMI 25.7
[2025-06-05] MEDS: RINGERS LACTATED 1000 ML 1,000 ML 125 ML IV (13:43)
[2025-06-05] MEDS: fentaNYL CIT INJ 50 mCg/ML AMP 2ML (ASD USE ONLY) IVP (13:49)
[2025-06-05] MEDS: MIDAZOLAM INJ 1 MG/ML VIAL 2 ML (ASD USE ONLY) 2 MG IVP (14:02)
== END 2025-06-05 15:25 | disposition home or self-care (01) ==
PROVIDERS: PCP Physician Assistant; Referring Provider Surgery; Visit Provider Surgery
PROC: 0DBE8ZX Excision of Large Intestine, Via Natural or Artificial Opening Endoscopic, Diagnostic (ICD-10-PCS; CPT 45380; principal; 2025-06-05 14:30)
DX: Z12.11 Encounter for screening for malignant neoplasm of colon (principal); E11.9 Type 2 diabetes mellitus without complications; I10 Essential (primary) hypertension; Z79.899 Other long term (current) drug therapy; Z79.84 Long term (current) use of oral hypoglycemic drugs
CPT/HCPCS: G0121; A4217; J1200; J2250; J3010; J7120